=== PATIENT | female | born 1940 | race Caucasian/White ===

== ENCOUNTER 2022-07-31 10:09 | Outpatient (CLI) | payer MEDICARE, BC, SELFPAY | END 2022-07-31 10:10 | disposition home or self-care (01) | LOC: AMB 08-26 13:28 | PROVIDERS: PCP Internal Medicine; Visit Provider Family Medicine | DX: S09.93XA Unspecified injury of face, initial encounter (principal); S09.90XA Unspecified injury of head, initial encounter; W01.10XA Fall on same level from slipping, tripping and stumbling with subsequent striking against unspecified object, initial encounter; Y92.29 Other specified public building as the place of occurrence of the external cause | CPT/HCPCS: A0998 ==

== ENCOUNTER 2023-02-27 13:46 | Outpatient (CLI) | payer MEDICARE, BC, SELFPAY ==
[2023-02-27] MEDS: PERFLUTREN LIPID MICROSPHERES 2 ML VIAL IV (15:07)
== END 2023-02-27 13:47 | disposition home or self-care (01) ==
LOC: RAD 13:47
PROVIDERS: PCP Internal Medicine; Visit Provider Internal Medicine
DX: R01.1 Cardiac murmur, unspecified (principal)
CPT/HCPCS: 93306; Q9957

== ENCOUNTER 2023-03-27 12:08 | Emergency (ER) | payer MEDICARE, BC, SELFPAY ==
[2023-03-27] VITALS (10 sets, daily range): BP systolic 119–162; BP diastolic 81–97; PULSE 68–79; RESP 14–22; TEMP 36.7; O2SAT 93–96; BMI 32.3
--- NOTE | 2023-03-27 12:39 | ED_ITS ---
HPI - Abdominal Pain General Time Seen by Provider: 12:39 Date Seen: 03/27/23 Chief Complaint: Abdominal Pain Stated Complaint: chest pain Time Seen by Provider: 03/27/23 12:24 Source: patient and RN notes reviewed Mode of arrival: ambulatory Limitations: no limitations History of Present Illness HPI narrative: Krystal is a 2-year-old female coming about 3 -4 day history of left upper quadrant abdominal pain. She states she will get sharp intense pains, right now it is more at a dull ache. She has noted some change in urination sense of inability to go despite urgency at times. Other times she will have urgency and have excess urination. No hematuria or dysuria. No fevers or chills. No nausea or vomiting, no diarrhea. She had a kidney stone on the right side prior but remembers vomiting with that 1. 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 She has had a hysterectomy, cholecystectomy, appendectomy. She wonders if this could be a kidney stone. She notes no chest pain but does feel short of breath with this. She thinks it is the pain. It is not pleuritic on questioning. MD elicited complaint: abdominal pain Pertinent past history: kidney stones Related Data Patient : No Home Medications Medication Instructions Recorded Confirmed albuterol sulfate 90 mcg/actuation 2 inh inhalation Q4H PRN 01/17/23 01/17/23 aerosol inhaler cholecalciferol (vitamin D3) 50 2,000 unit PO DAILY 01/17/23 01/17/23 mcg (2,000 unit) capsule fluticasone 100 mcg-salmeterol 50 1 inh inhalation BID 01/17/23 01/17/23 mcg/dose blistr powdr for inhalation sennosides 8.6 mg tablet 1 mg PO DAILY 01/17/23 01/17/23 Previous Rx's Medication Instructions Recorded allopurinol 100 mg tablet 100 mg PO DAILY #90 tabs 01/17/23 atenolol 50 mg tablet 50 mg PO QDAY #90 tabs 01/17/23 colchicine 0.6 mg tablet 0.6 mg PO QDAY #90 tabs 01/17/23 triamterene 37.5 1 tab PO DAILY #90 tabs 01/17/23 mg-hydrochlorothiazide 25 mg tablet doxycycline monohydrate 100 mg 100 mg PO BID #19 tabs 03/27/23 tablet Allergies Allergy/AdvReac Type Severity Reaction Status Date / Time latex Allergy Intermediate Rash Verified 01/17/23 09:51 atorvastatin Allergy Mild hives, Verified 01/17/23 09:51 toes numb potassium Allergy Mild Rash Verified 01/17/23 09:51 bacitracin AdvReac Severe Verified 01/17/23 09:51 neomycin AdvReac Severe Verified 01/17/23 09:51 polymyxin B AdvReac Severe Verified 01/17/23 09:51 Review of Systems Status of ROS Reports: 6 or more systems reviewed and unremarkable except as noted in History and below [facility] Medical History History of nephrolithiasis ?Z87.442 - Personal history of urinary calculi (ICD-10) History of osteomyelitis (2016) ?Z87.39 - Personal history of other diseases of the musculoskeletal system and connective tissue (ICD-10) Surgical History Status post cataract extraction (2014) ?Z98.49 - Cataract extraction status, unspecified eye (ICD-10) History of tonsillectomy ?Z90.89 - Acquired absence of other organs (ICD-10) History of right hemicolectomy (2013) ?Z90.49 - Acquired absence of other specified parts of digestive tract (ICD- 10) History of hysterectomy (1972) ?Z90.710 - Acquired absence of both cervix and uterus (ICD-10) History of cholecystectomy (1988) ?Z90.49 - Acquired absence of other specified parts of digestive tract (ICD- 10) History of appendectomy (1972) ?Z90.49 - Acquired absence of other specified parts of digestive tract (ICD- 10) Social History Smoking Status: Never smoker Do you use any of these nicotine containing products: None Second hand tobacco smoke exposure: No How often do you have a drink containing alcohol: never AUDIT-C Alcohol total score: 0 Non-prescribed substance use: denies use Little interest or pleasure in doing things: not at all Feeling down, depressed, or hopeless: not at all service: No Exam Const: Vital Signs, click to edit/add: Vital Signs - 24 hr 03/27/23 12:29 03/27/23 13:04 03/27/23 14:39 Temperature 98.0 F 98.0 F Pulse Rate [Pulse Oximeter] 69 71 Respiratory Rate 18 18 Blood Pressure [Ri ght Upper Arm] 158/83 H 153/91 H Pulse Oximetry 95 95 93 Oxygen Delivery Me thod Room Air Room Air Documenting provider has reviewed patient's vital signs: yes Common normals: no apparent distress, oriented x3, no limitations, healthy appearing, alert and well nourished General appearance: cooperative, comfortable, well kempt and well developed Nutritional appearance: obese HENMT: Common normals: normocephalic, head/scalp atraumatic, hearing grossly normal bilaterally and external nose normal Head and scalp: normocephalic and atraumatic Face and sinus: normal facial exam Nose: external nose normal Eye: Common normals: PERRL, EOMs intact bilaterally, conjunctivae normal and no scleral icterus Conjunctiva: conjunctiva(e) normal Pupil: PERRL Neck & C-Spine: Common normals: full ROM, no lymphadenopathy and supple Resp: Common normals: normal respiratory effort, no retractions, no use of accessory muscles and clear to auscultation bilaterally Effort & inspection: able to speak in complete sentences Auscultation: clear to auscultation bilaterally Cardio: Common normals: regular rate, regular rhythm, S1 normal heart sound, S2 normal heart sound, no gallops and no clicks Rate: regular rate Rhythm: regular rhythm Heart sounds: S1 normal and S2 normal GI: Common normals: Normal to inspection, nondistended, normoactive bowel sounds present, soft to palpation, non-tender, no hepatosplenomegaly and no masses Palpation: soft and no hepatosplenomegaly Neuro: Common normals: oriented x3 Sensorium/orientation: alert Psych: Appearance: well kempt Course Course Hospital Course: Patient is having some underlying abdominal pain that has a component of worsening with sharp stabbing at times. Certainly nephrolithiasis with renal colic is in the differential. This could be a atypical presentation of of partial bowel obstruction although I do not consider this to be high on the diagnostic list. We may need to entertain CT imaging for further delineation of her pain. We will obtain urinalysis and full complement of labs. She is currently hemodynamically stable. Will follow and treat pain if she desires or clinically worsens. Reevaluation(s) Time of Reevaluation #1: 14:17 Reevaluation #1: Reviewed with Krystal her chest x-ray findings, elevated D-dimer. She will be getting chest CT PE protocol and then we will take this into the abdomen pelvis just to ensure no intra-abdominal pathology. She understands that there could be pneumonia, pleural effusion, possibly even underlying pulmonary embolus. There does exist the etiology of something underlying in the abdomen which could be giving a pleural effusion that is reactive. Time of Reevaluation #2: 16:46 Reevaluation #2: Have reviewed CT findings, she does have left-sided pneumonia and small left pleural effusion which is likely causative etiology of her symptoms. 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 There is also possible thyroid nodule. The kidney stones and the thyroid nodule will need further outpatient workup. We are going to start her on doxycycline, will give her her 1st oral dose here. Patient's potassium is mildly low but she is reported to be allergic to potassium. Will give her handout on potassium content of foods. Vital Signs Vital signs: Initial Vital Signs Temperature 98.0 F 03/27/23 12:29 Temperature Source Temporal Artery Scan 03/27/23 12:29 Pulse Rate 69 03/27/23 12:29 Pulse Rhythm Regular 03/27/23 12:29 Respiratory Rate 18 03/27/23 12:29 Blood Pressure 158/83 H 03/27/23 12:29 Blood Pressure Mean 108 H 03/27/23 12:29 Pulse Oximetry 95 03/27/23 12:29 Oxygen Delivery Method Room Air 03/27/23 12:29 Vital Signs Temperature 98.0 F 03/27/23 12:29 Pulse Rate 69 03/27/23 12:29 Respiratory Rate 18 03/27/23 12:29 Blood Pressure 158/83 H 03/27/23 12:29 Pulse Oximetry 95 03/27/23 12:29 Oxygen Delivery Method Room Air 03/27/23 12:29 Temperature 98.0 F 03/27/23 14:39 Pulse Rate 71 03/27/23 14:39 Respiratory Rate 18 03/27/23 14:39 Blood Pressure 153/91 H 03/27/23 14:39 Pulse Oximetry 93 03/27/23 14:39 Oxygen Delivery Method Room Air 03/27/23 14:39 MDM - Abdominal Pain Lab Data Attestation: I reviewed the patient's lab results. Labs: Lab Results 03/27/23 03/27/23 Range/Units 12:35 13:23 WBC 8.78 (4.50-11.00) K/uL RBC 4.62 (4.00-5.20) m/uL Hgb 14.8 (12.0-16.0) gm/dL Hct 44.2 (33.0-51.0) % MCV 96 (80-100) fL MCH 32 (26-34) pg MCHC 34 (32-36) gm/dL RDW Coeff of Elena 12.5 (11.5-15.5) % Plt Count 188 (140-440) K/uL Neut % (Auto) 55.0 (42.0-72.0) % Lymph % (Auto) 29.2 (20-44) % Park % (Auto) 11.6 H (0.0-11.0) % Eos % (Auto) 3.5 (0.0-7.0) % Baso % (Auto) 0.5 (0.0-3.0) % Neut # (Auto) 4.83 (1.7-7.0) K/uL Lymph # (Auto) 2.56 (0.90-2.90) K/uL Park # (Auto) 1.00 H (0.00-0.90) K/UL Eos # (Auto) 0.31 (0.00-0.50) K/uL Baso # (Auto) 0.04 (0.00-0.30) K/uL Abs Immat Gran (auto) 0.02 (0.00-0.30) K/uL Imm/Tot Granulo (auto) 0.2 % D-Dimer Quant (PE/DVT) 1.88 H (0.00-0.50) ug/ml Sodium 136 (135-149) mmol/L Potassium 3.0 L (3.6-5.1) mmol/L Chloride 98 (96-114) mmol/L Carbon Dioxide 27 (20-32) mmol/L BUN 32 H (7-30) mg/dL Creatinine 1.0 (0.5-1.5) mg/dL Estimated Creat Clear 39.90 Estimated GFR 56 ml/min Glucose 97 (60-115) mg/dL Lactate 1.9 (0.5-1.9) mmol/L Calcium 10.1 (8.4-10.6) mg/dL Total Bilirubin 0.6 (0.1-1.5) mg/dL AST 29 (12-35) U/L ALT 26 (4-35) U/L Alkaline Phosphatase 61 (40-150) U/L Troponin I < 0.01 L (0.01-0.04) ng/mL C-Reactive Protein 5.3 H (0.5-1.0) mg/dL Total Protein 8.1 (6.0-8.3) g/dL Albumin 4.1 (3.3-5.0) g/dL Urine Color Yellow (Yellow) Urine Appearance Clear (Clear) Urine pH 6.0 (5.0-8.5) Ur Specific [place] 1.015 (1.000-1.030) Urine Protein Negative (Negative) Urine Glucose (UA) Negative (Negative) Urine Ketones Negative (Negative) Urine Blood Trace-intact A (Negative) Urine Nitrite Negative (Negative) Urine Bilirubin Negative (Negative) Urine Urobilinogen 0.2 (0.2-1.0) Ur Leukocyte Esterase Trace A (Negative) Urine RBC 2-5 A (0-2) Urine WBC 0-2 (0-5) Ur Squamous Epith Cells Few (None-Few) Urine Bacteria Few A (None) Imaging Data Chest x-ray: Attestation: I have reviewed the pertinent imaging results. My impression: See blurring of the left heart border and costophrenic angle, probable effusion. Await Radiology over-read. Radiologist's impression: Patient: KRYSTAL MARSHALL Facility:?[facility] Patient ID:?[id number] Site Patient ID:?[id number]. Site :?[id number] Study:?XRay Chest 1 VIEW PORTABLE-03/27/2023 1:11:18 PM Ordering Physician:Vale Resendiz Final Report: INDICATION: Shortness of breath. TECHNIQUE: AP portable chest x-ray. FINDINGS: Shallow inspiratory effort. Infiltrate or atelectasis left lung base. Blunting of left costophrenic angle likely by trace amount of pleural fluid or pleural thickening. Clear right lung. Overall heart size is normal accounting for technique. Degenerative narrowing of the glenohumeral joints. IMPRESSION: Infiltrate or atelectasis left lung base. There is likely a small left-sided pleural effusion is well. Radiographic followup recommended after appropriate treatment. Dictated by Chandan Jamil MD @ 03/27/2023 1:50:16 PM (Electronic Signature) CT Chest/Ab/Pelvis: Attestation: I have reviewed the pertinent imaging results. Radiologist's impression: Patient: KRYSTAL MARSHALL Facility:?[facility] Patient ID:?[id number] Site Patient ID:?[id number]. Site :?[id number] Study:?CT Chest/Abd/Pelvis PE W/ ISOVUE 370 95CC-03/27/2023 2:45:08 PM Ordering Physician:Vale Resendiz Final Report: INDICATION: Shortness of breath. Left upper quadrant abdominal pain. TECHNIQUE: CT chest PE, abdomen and pelvis acquired with 95 cc Isovue 370 IV contrast. COMPARISON: Chest radiograph 03/27/2023. CT abdomen and pelvis 03/06/2017. FINDINGS: CHEST: Cardiovascular structures: Heart size is normal. Thoracic aorta and main pulmonary artery are normal in caliber. No sign of pulmonary embolism. Mediastinum and alfreda: No adenopathy. Questionable 1.5 cm nodule in the inferior left thyroid lobe, with evaluation limited by beam hardening artifact from contrast bolus, consider further evaluation with nonemergent dedicated thyroid ultrasound. Lungs and pleura: Trace left pleural effusion. Inferior lingula and bibasilar atelectasis. Left lower lobe patchy consolidative and ground-glass opacities. No pneumothorax. Chest wall and axilla: No mass or adenopathy. Bones: Chronic appearing compression deformity of T10, with fusion of the T10 and T11 vertebral bodies resulting in focal kyphosis. ABDOMEN AND PELVIS: Liver: Stable hypodense lesion in hepatic segment 4A, likely benign. Gallbladder and bile ducts: Status post cholecystectomy. Pancreas: Few parenchymal calcifications, nonspecific but may be seen as sequela of chronic pancreatitis. Spleen: Subcentimeter hypodense foci are too small to accurately characterize but unchanged and likely benign. Adrenal glands: Unremarkable. Kidneys: Left renal cortical thinning. Subcentimeter hypodense foci are too small to accurately characterize. Multiple left renal calculi, including with staghorn configuration in the superior pole. Punctate nonobstructive calculus in right inferior pole. No hydrocephalus. GI tract: Tiny are hernia. Normal in caliber. No evidence of obstruction. Vascular structures: Scattered atherosclerotic calcifications. Abdominal aorta is normal in caliber. Lymph nodes: Unremarkable. Miscellaneous: Unremarkable. No free air or significant free fluid. Pelvic Organs: Status post hysterectomy. Bones: Degenerative changes of the spine. IMPRESSION: 1. No evidence of pulmonary embolism. 2. Left lower lobe patchy consolidative and ground-glass opacities, likely reflecting pneumonia. 3. Trace left pleural effusion. 4. No acute abnormality of the abdomen or pelvis. 5. Bilateral nephrolithiasis as detailed above, including staghorn configuration in the left kidney. Please note that all CT scans at this facility use dose modulation, iterative reconstruction, and/or weight-based dosing when appropriate to reduce radiation dose to as low as reasonably achievable. Dictated by Felix Dominguez MD @ 03/27/2023 4:18:23 PM (Electronic Signature) ECG Data Attestation: I personally reviewed and interpreted this ECG as follows: (Sinus rhythm, 68 beats per minute. Looks to be developing a nonspecific intra conduction delay, QRS 114 milliseconds. Voltage criteria for LVH possible via aVL. QT corrected 412 milliseconds. No definitive ischemia.) ECG interpretation date: 03/27/23 ECG interpretation time: 13:24 Prior ECG tracings: available for review (2016 EKG) Critical Care Time Critical Care Time Critical Care Time: No Discharge Plan Discharge Clinical Impression: Community acquired pneumonia of left lung, Hypokalemia Patient Disposition: Home, Self-Care Condition: Stable Instructions: Potassium Content of Foods List (ED), Community Acquired Pneumonia (ED) Additional Instructions: Need to take doxycycline as prescribed, next dose due to start tomorrow morning. Potassium was mildly low here, recommend trying to eat foods that are higher in potassium content to correct this. Need to schedule clinic followup within the next 1-2 weeks for recheck, do recommend having your potassium rechecked as well. You need to bring the CT report to the follow-up visit to review the incidental findings. Urology should be consulted for the staghorn calculus in the left kidney. A dedicated thyroid ultrasound should be considered to ensure that there is no thyroid abnormality or further characterize any thyroid nodule if there is 1 there. As far as the pneumonia, if you are worsening at any point with feeling increasingly ill, uncontrolled pain, develops fever, cough or significant shortness of breath/difficulty breathing. The left sided pain is l ikely pleuritic pain from the pneumonia bothering the lining of the lung. Recommend Tylenol 1000 mg 3 times a day. May use an occasional dose of ibuprofen but do not recommend this be used chronically or consistently. Activity Level: Activity as Tolerated Prescriptions: New doxycycline monohydrate 100 mg tablet 100 mg PO BID Qty: 19 0RF No Action albuterol sulfate 90 mcg/actuation HFA aerosol inhaler 2 inh inhalation Q4H PRN sennosides 8.6 mg tablet 1 mg PO DAILY cholecalciferol (vitamin D3) 50 mcg (2,000 unit) capsule 2,000 unit PO DAILY fluticasone propion-salmeterol 100-50 mcg/dose blister with device 1 inh inhalation BID allopurinol 100 mg tablet 100 mg PO DAILY Qty: 90 3RF atenolol 50 mg tablet 50 mg PO QDAY Qty: 90 3RF colchicine 0.6 mg tablet 0.6 mg PO QDAY Qty: 90 3RF triamterene-hydrochlorothiazid 37.5-25 mg tablet 1 tab PO DAILY Qty: 90 3RF Follow Up/Referrals: Katia Pelaez MD [Primary Care Provider] - Stand Alone Forms: [employer] Info Instructions
--- NOTE | 2023-03-27 12:52 | CRLHL7_ITS ---
For Patients: As a result of the Century Cures Act, medical imaging exams and procedure reports are released immediately into your electronic medical record. You may view this report before your referring provider. If you have questions, please contact your health care provider. INDICATION: Shortness of breath. TECHNIQUE: AP portable chest x-ray. FINDINGS: Shallow inspiratory effort. Infiltrate or atelectasis left lung base. Blunting of left costophrenic angle likely by trace amount of pleural fluid or pleural thickening. Clear right lung. Overall heart size is normal accounting for technique. Degenerative narrowing of the glenohumeral joints. IMPRESSION: Infiltrate or atelectasis left lung base. There is likely a small left-sided pleural effusion is well. Radiographic followup recommended after appropriate treatment. Dictated by Chandan Jamil MD @ 03/27/2023 1:50:16 PM (Electronically Signed)
[2023-03-27 12:59] LABS: Lactate* 1.9 mmol/L (0.5-1.9)
[2023-03-27 13:03] LABS: Basophils Absolute Auto 0.04 K/uL (0.00-0.30); Basophils Percent Auto 0.5 % (0.0-3.0); Eosinophils Absolute Auto 0.31 K/uL (0.00-0.50); Eosinophils Percent Auto 3.5 % (0.0-7.0); Hematocrit 44.2 % (33.0-51.0); Hemoglobin* 14.8 gm/dL (12.0-16.0); Immature Granulocytes Abs Auto 0.02 K/uL (0.00-0.30); Immature Granulocytes Pct Auto 0.2 %; Lymphocytes Absolute Auto 2.56 K/uL (0.90-2.90); Lymphocytes Percent Auto 29.2 % (20-44); Mean Corpuscular HGB Conc 34 gm/dL (32-36); Mean Corpuscular Hemoglobin 32 pg (26-34); Mean Corpuscular Volume 96 fL (80-100); Monocytes Percent Auto 11.6 % (0.0-11.0); Neutrophils Absolute Auto 4.83 K/uL (1.7-7.0); Platelet Count* 188 K/uL (140-440); RDW Coefficient of Variation % 12.5 % (11.5-15.5); Red Blood Count 4.62 m/uL (4.00-5.20); White Blood Count* 8.78 K/uL (4.50-11.00)
[2023-03-27 13:15] LABS: Slide Review Reflex No
[2023-03-27 13:16] LABS: D Dimer Quantitative* 1.88 ug/ml (0.00-0.50)
[2023-03-27 13:25] LABS: Albumin* 4.1 g/dL (3.3-5.0); Chloride* 98 mmol/L (96-114)
[2023-03-27 13:26] LABS: Sodium* 136 mmol/L (135-149)
[2023-03-27 13:28] LABS: Estimated Glomerular Filt Rate 56 ml/min
[2023-03-27 13:29] LABS: Alanine Aminotransferase* 26 U/L (4-35); Alkaline Phosphatase* 61 U/L (40-150); Aspartate Amino Transferase* 29 U/L (12-35); Bilirubin Total* 0.6 mg/dL (0.1-1.5); Blood Urea Nitrogen* 32 mg/dL (7-30); Calcium* 10.1 mg/dL (8.4-10.6); Carbon Dioxide* 27 mmol/L (20-32); Glucose* 97 mg/dL (60-115); Total Protein* 8.1 g/dL (6.0-8.3)
--- NOTE | 2023-03-27 13:30 | CRLHL7_ITS ---
For Patients: As a result of the 21st Century Cures Act, medical imaging exams and procedure reports are released immediately into your electronic medical record. You may view this report before your referring provider. If you have questions, please contact your health care provider. INDICATION: Shortness of breath. Left upper quadrant abdominal pain. TECHNIQUE: CT chest PE, abdomen and pelvis acquired with 95 cc Isovue 370 IV contrast. COMPARISON: Chest radiograph 03/27/2023. CT abdomen and pelvis 03/06/2017. FINDINGS: CHEST: Cardiovascular structures: Heart size is normal. Thoracic aorta and main pulmonary artery are normal in caliber. No sign of pulmonary embolism. Mediastinum and alfreda: No adenopathy. Questionable 1.5 cm nodule in the inferior left thyroid lobe, with evaluation limited by beam hardening artifact from contrast bolus, consider further evaluation with nonemergent dedicated thyroid ultrasound. Lungs and pleura: Trace left pleural effusion. Inferior lingula and bibasilar atelectasis. Left lower lobe patchy consolidative and ground-glass opacities. No pneumothorax. Chest wall and axilla: No mass or adenopathy. Bones: Chronic appearing compression deformity of T10, with fusion of the T10 and T11 vertebral bodies resulting in focal kyphosis. ABDOMEN AND PELVIS: Liver: Stable hypodense lesion in hepatic segment 4A, likely benign. Gallbladder and bile ducts: Status post cholecystectomy. Pancreas: Few parenchymal calcifications, nonspecific but may be seen as sequela of chronic pancreatitis. Spleen: Subcentimeter hypodense foci are too small to accurately characterize but unchanged and likely benign. Adrenal glands: Unremarkable. Kidneys: Left renal cortical thinning. Subcentimeter hypodense foci are too small to accurately characterize. Multiple left renal calculi, including with staghorn configuration in the superior pole. Punctate nonobstructive calculus in right inferior pole. No hydrocephalus. GI tract: Tiny are hernia. Normal in caliber. No evidence of obstruction. Vascular structures: Scattered atherosclerotic calcifications. Abdominal aorta is normal in caliber. Lymph nodes: Unremarkable. Miscellaneous: Unremarkable. No free air or significant free fluid. Pelvic Organs: Status post hysterectomy. Bones: Degenerative changes of the spine. IMPRESSION: 1. No evidence of pulmonary embolism. 2. Left lower lobe patchy consolidative and ground-glass opacities, likely reflecting pneumonia. 3. Trace left pleural effusion. 4. No acute abnormality of the abdomen or pelvis. 5. Bilateral nephrolithiasis as detailed above, including staghorn configuration in the left kidney. Please note that all CT scans at this facility use dose modulation, iterative reconstruction, and/or weight-based dosing when appropriate to reduce radiation dose to as low as reasonably achievable. Dictated by Felix Dominguez MD @ 03/27/2023 4:18:23 PM (Electronically Signed)
[2023-03-27 13:32] LABS: C Reactive Protein* 5.3 mg/dL (0.5-1.0)
[2023-03-27 13:50] LABS: Appearance Urine Clear (Clear); Bilirubin Urine Negative (Negative); Blood Urine Trace-intact (Negative); Color Urine Yellow (Yellow); Glucose Urine Negative (Negative); Ketones Urine Negative (Negative); Leukocyte Esterase Urine Trace (Negative); Nitrite Urine Negative (Negative); Protein Urine Negative (Negative); Specific Gravity Urine 1.015 (1.000-1.030); Urobilinogen Urine 0.2 (0.2-1.0)
[2023-03-27 14:10] LABS: Bacteria Urine Few; Squamous Epithelial Cell Urine Few (None-Few); WBC Urine 0-2 (0-5)
[2023-03-27 14:20] LABS: Troponin I* < 0.01 ng/mL (0.01-0.04)
--- NOTE | 2023-03-27 14:41 | PC.NURSE ---
pt came back from CT and used restroom, came back to room short of breath and increased left lower chest pain.
[2023-03-27] MEDS: ACETAMINOPHEN 500 MG TABLET 1000 MG PO (14:54)
--- NOTE | 2023-03-27 16:52 | ED.NURSE ---
Dr. Rloon is in the room talking with patient
[2023-03-27] MEDS: DOXYCYCLINE HYCLATE 100 MG CAPSULE PO (17:06)
== END 2023-03-27 17:36 | disposition home or self-care (01) ==
PROVIDERS: Emergency Provider Family Medicine; PCP Internal Medicine
DX: J18.9 Pneumonia, unspecified organism (principal); E87.6 Hypokalemia
CPT/HCPCS: 36415; 71045; 71260; 74177; 80053; 81001; 83605; 84484; 85025; 85379; 86140; 87086; 93005; 94761; 99284; 99285; A9270; Q9967

== ENCOUNTER 2023-04-20 13:22 | Outpatient (CLI) | payer MEDICARE, BC, SELFPAY ==
--- NOTE | 2023-04-20 13:40 | CRLHL7_ITS ---
For Patients: As a result of the Century Cures Act, medical imaging exams and procedure reports are released immediately into your electronic medical record. You may view this report before your referring provider. If you have questions, please contact your health care provider. BILATERAL SCREENING MAMMOGRAM WITH COMPUTER-AIDED DETECTION TECHNIQUE: CC and MLO views were obtained. These mammographic images have been obtained using full-field digital technique. These mammographic images were interpreted with the benefit of computer-aided detection. COMPARISON FILM: 08/06/21, 06/18/20, 06/17/19. FINDINGS: There are scattered areas of fibroglandular density IMPRESSION: There is no radiographic evidence for malignancy. ASSESSMENT: BI-RADS Category 1: Negative RECOMMENDATION: Routine screening mammogram in 1 year. A lay language report of this examination will be provided to the patient. Gaudencio Cramer M.D. Diagnostic Radiologist [email or web address] JANNETH/Dictated by: Gaudencio Cramer MD @ 04/21/2023 2:32:00 PM (Electronically Signed)
--- NOTE | 2023-04-20 14:00 | CRLHL7_ITS ---
For Patients: As a result of the Cures Act, medical imaging exams and procedure reports are released immediately into your electronic medical record. You may view this report before your referring provider. If you have questions, please contact your health care provider. INDICATION: Nodule on recent CT COMPARISON: CTs 03/27/2023 TECHNIQUE: Goetz scale and color Doppler images were acquired of the thyroid gland. FINDINGS: Sponge like nodule within the upper pole of the right thyroid lobe measuring 10 x 7 x 9 millimeters. Isoechoic solid nodule inferior pole right thyroid lobe measuring 17 x 11 x 18 millimeters. Solid and cystic nodule upper pole left thyroid lobe measuring 11 x 10 x 12 millimeters. Sponge like nodule midportion left thyroid lobe measuring 9 x 14 x 11 millimeters. Solid and cystic nodule lower pole left thyroid lobe measuring 20 x 17 x 17 millimeters. The right lobe measures 5.5 x 1.7 x 1.9 cm and the left lobe measures 3.8 x 1.8 x 2.1 cm in size. The color Doppler images demonstrate normal vascularity. There is no evidence of cervical lymphadenopathy or parathyroid mass. IMPRESSION: Multinodular goiter. Yearly follow-up could be considered. FNA not indicated at this time. Dictated by Gaudencio Cramer MD @ 04/21/2023 10:50:08 AM (Electronically Signed)
== END 2023-04-20 13:23 | disposition home or self-care (01) ==
LOC: MAMMO 13:23
PROVIDERS: PCP Internal Medicine; Visit Provider Internal Medicine
DX: Z12.31 Encounter for screening mammogram for malignant neoplasm of breast (principal); E04.1 Nontoxic single thyroid nodule
CPT/HCPCS: 76536; 77063; 77067

== ENCOUNTER 2024-02-26 08:55 | Outpatient (CLI) | payer MEDICARE, BC, SELFPAY ==
--- OUTSIDE RECORDS SUMMARY | 2024-03-01 15:45 | XMS_ITS | Clinical Summary ---
Author Organization [facility] Address [address] [place] [address] Care Team Providers Care Clinical Medical Transcriptionist Name Role Phone Elsewhere, Pcp Primary Care Provider Unavailabl e Source Comments Patient records contain information from all sites at [facility]. For routine questions regarding patient records, call [phone] during business hours, M-F 8:00 AM - 5:00 PM Central Time. Record requests for emergency care only can be directed to [phone] at any time.[facility] Allergies Active Allergy Reactions Criticality Noted Date Comments Latex Other (see comments),Rash High 04/21/2016 PN: Skin peeling at site where latex bandage was placed on finger Mineral Oil-Hydrophil Petrolat Rash 04/13/2023 Neomycin Rash High 03/30/2017 Polymyxin B Rash 04/13/2023 neosporin Potassium GI intolerance,Nause a And Vomiting,Rash Low 03/30/2017 Medications Medication Sig Dispensed Refills Start Date End Date Status atenoloL (TENORMIN) 50 mg tablet Take 50 mg by mouth daily. Active colchicine (COLCRYS) 0.6 mg tablet Take 0.6 mg by mouth daily. 01/27/2023 Active albuterol 90 mcg/actuation inhaler Inhale 2 puffs 2 (two) times a day. Active fluticasone propion-salmeteroL 100-50 mcg/actuation diskus inhaler Inhale 1 puff as needed (shortness of breath). 03/21/2017 Active albuterol 1.25 mg/3 mL nebulizer solution Inhale 1.25 mg every 4 (four) hours as needed for shortness of breath. 05/31/2022 Active triamterene-hydroCHL OROthiazide (Dyazide) 37.5-25 mg per capsule Take 1 capsule by mouth daily. Active acetaminophen (TYLENOL) 500 mg tablet Take 1,000 mg by mouth daily after breakfast. Active allopurinoL 200 mg tablet Take 200 mg by mouth daily. 90 tablet 3 10/10/2023 Active sodium bicarbonate 650 mg tabletIndications:Ne phrolithiasis Take 1 tablet (650 mg total) by mouth 2 (two) times a day. 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 No 10/06/2023 Exercise Vital Sign Answer Date Recorde d On average, how many days pe r week do you engage in moderate to strenuous exercise (like a brisk walk)? 2 days 10/06/2023 On average, how many minutes do you engage in exercise at this level? 20 min 10/06/2023 Hunger Vital Sign Answer Date Recorded Within the past 12 months, y ou worried that your food would run out before you got the money to buy more. Never true 10/06/19 24 Within the past 12 months, t he food you bought just didn't last and you didn't have money to get more. Never true 10/06/2023 PRAPARE - Transportation Answer Date Re corded In the past 12 months, has l ack of transportation kept you from medical appointments or from getting medications? No 09/12 In the past 12 months, has l ack of transportation kept you from meetings, work, or from getting things needed for daily living? No 10/06/2023 Nutrition Answer Date Recorded Nutrition: EVOO Fat Source Unknown 10/06 On average, how many serving s of fruits and vegetables do you eat per day (serving size is equal to 1 cup or approximately the size of a tennis ball)? 3-5 10/06/2023 Dental Answer Date Recorded Dental: Regular Dentist Yes 10/06/19 Employment Answer Date Recorded Employment status Retired 10/06/2023 Housing Stability Answer Date Recorded What is your living situation today? I have a [facility] place to live 10/06/2023 Sex and Gender Information Value Date Recorded Sex Assigned at Female 07/28/2023 2:08 PM PROGRAM SUPPORT ASSISTANT Gender Identity Female 07/28/2023 2:08 PM PROGRAM SUPPORT ASSISTANT Sexual Orientation Straight 07/28/2023 2: 08 PM PROGRAM SUPPORT ASSISTANT Last Filed Vital Signs Vital Sign Reading Time Taken Comments Blood Pressure 122/75 10/10/2023 1:28 PM PROGRAM SUPPORT ASSISTANT Pulse 73 10/10/2023 1:28 PM PROGRAM SUPPORT ASSISTANT Temperature 36.2 ??C (97.2 ??F) 08/04/2023 2:24 PM CS T Respiratory Rate 14 08/04/2023 2:24 PM PROGRAM SUPPORT ASSISTANT Oxygen Saturation 98% 08/04/2023 2:24 PM PROGRAM SUPPORT ASSISTANT Inhaled Oxygen Concentration - - Weight 92.4 kg (203 lb 13 oz) 10/10/2023 1:28 PM PROGRAM SUPPORT ASSISTANT Height 161.8 cm (5' 3.7) 10/10/2023 1:28 PM PROGRAM SUPPORT ASSISTANT Body Mass Index 35.31 10/10/2023 1:28 PM PROGRAM SUPPORT ASSISTANT Plan of Treatment Health Maintenance Due Date Last Done Comments DTaP,Tdap,and Td Vaccines (2 - Td or Tdap) 03/27/2023 03/27/2013, 01/01/1997 COVID-19 Vaccine (2022-2 4 season) 2023 01/19/2023, 07/18/2022, 12/23/2021, Additional history exists Depression Screening (Annual PHQ-2) 09/11/2023 Fall Risk Screen (Annual) 09/11/2023 Creatinine Level (Kidney Fun ction Test) 10/10/2024 10/10/2023, 06/16/2023, 06/14/2023, Additional history exists Office Visit for Blood Press ure Check / Re-check 10/10/2024 10/10/2023 Potassium Level 10/10/2024 10/10/2023, 02/2023, 06/14/2023, Additional history exists Sodium Level 10/10/2024 10/10/2023, 02/2023, 06/14/2023, Additional history exists Pneumococcal vaccine (65+ years) Completed 02/01/2016, 11/24/2014, 07/17/2003 Zoster Vaccines Completed 07/11/2019, 04/11, 06/25/2012 Influenza Vaccine Completed 05/22/2023, , 06/09/2021, Additional history exists Medical Devices Implanted Type Area Spool Hauler Device Identifier Shelf Expiration Date Model / Serial / Lot Ocular Lens Ocular Lens Eye Explanted Type Area Spool Hauler Device Identifier Shelf Expiration Date Model / Serial / Lot Stnt Uret Inl 6fx26 - [id number] Implanted:Qty : 1 on 06/15/2023 by Kvng Guy M.D., M.P.H. at [facility] Explanted:Qty : 1 Ureteral Stent C.R.Bard [id number] 01/03/2028 [id number] / / [id number] Stnt Uret Inl [id number] - [id number] Implanted:Qty : 1 on 08/04/2023 by Kvng Guy M.D., M.P.H. at [facility] Explanted:Qty : 1 on 09/07/2023 by Sandra Stern M.D., M.S. Ureteral Stent Left: Ureter C.R.Bard [id number] 01/03/2028 [id number] / / [id number] Procedures Procedure Name Priority Date/Time Associated Diagnosis Comments RENAL FUNCTION PANEL, S Routine 10/10/2023 10:52 AM PROGRAM SUPPORT ASSISTANT Nephrolithiasis from Last 3 Months or Most Recently Relevant to Health Maintenance Results * (ABNORMAL) Renal Function Panel (10/10/2023 10:52 AM PROGRAM SUPPORT ASSISTANT) Potassium, S 3.5(L) 3.6 - 5.2 mmol/L 10/10/2023 12:00 PM PROGRAM SUPPORT ASSISTANT DTL Sodium, S 140 135 - 145 mmol/L 10/10/2023 12:00 PM PROGRAM SUPPORT ASSISTANT DTL Chloride, S 102 98 - 107 mmol/L 10/10/2023 12:00 PM PROGRAM SUPPORT ASSISTANT DTL Bicarbonate, S 26 22 - 29 mmol/L 10/10/2023 12:00 PM PROGRAM SUPPORT ASSISTANT DTL Anion Gap 12 7 - 15 10/10/2023 12:00 PM PROGRAM SUPPORT ASSISTANT DTL BUN (Blood Urea Nitrogen), S 35(H) 6 - 21 mg/dL 10/10/2023 12:00 PM PROGRAM SUPPORT ASSISTANT DTL Creatinine 1.20(H) 0.59 - 1.04 mg/dL 10/10/2023 12:00 PM PROGRAM SUPPORT ASSISTANT DTL Estimated GFR (eGFR) 45(L) >=60 mL/min/BSA 10/10/2023 12:00 PM PROGRAM SUPPORT ASSISTANT DTL Comment: Estimated GFR calculated using the 2020 CKD_EPI creatinine equation. Calcium, Total, S 10.1 8.8 - 10.2 mg/dL 10/10/2023 12:00 PM PROGRAM SUPPORT ASSISTANT DTL Glucose, S 96 70 - 140 mg/dL 10/10/2023 12:00 PM PROGRAM SUPPORT ASSISTANT DTL Albumin, S 4.1 3.5 - 5.0 g/dL 10/10/2023 12:00 PM PROGRAM SUPPORT ASSISTANT DTL Phosphorus (Inorganic), S 3.0 2.5 - 4.5 mg/dL 10/10/2023 12:00 PM PROGRAM SUPPORT ASSISTANT DTL Blood (Blood, Venous) 10/10/2023 10:52 AM PROGRAM SUPPORT ASSISTANT 10/10/2023 11:31 AM PROGRAM SUPPORT ASSISTANT Sandra Stern M.D., M.S. LAB BLOO D ADD-ON [facility] [address] [place] [address], [facility] DTL [facility] [address] [place] [address] from Last 3 Months or Most Recently Relevant to Health Maintenance Care Teams Clinical Medical Transcriptionist Relationship Specialty Start Date End Date Elsewhere, Pcp PCP - General Internal Medicine 04/13/23
--- OUTSIDE RECORDS SUMMARY | 2024-03-01 15:45 | XMS_ITS | Continuity of Care Document ---
Author Organization [facility] Address [address] [place] [address] Phone Care Team Providers Care Insecticide Expert Name Role Phone Collins Griffiths MD Unavailable Unavailable Allergies, Adverse Reactions, Alerts Substance Reaction Status Criticality petrolatum,white rash Active No Informat ion polymyxin B rash Active No Information neomycin rash Active No Information bacitracin rash Active No Information atorvastatin intolerance Active No Information latex rash Active No Information potassium hives, nausea, vomiting Active No I nformation Medications Medication Instructions Dosage Effective Dates (start - stop) Status Comments ADVAIR DISKUS (unknown strength) Not Available - Active ADVIL (unknown strength) Not Available - Active ATENOLOL (unknown strength) Not Available - Active MAXZIDE-25 MG (unknown strength) Not Available - Active DULCOLAX (unknown strength) Not Available - Active MULTIVITAMINS (unknown strength) Not Available - Active OXYCODONE HCL (unknown strength) Not Available - Active SENNA (unknown strength) Not Available - Active PROVENTIL HFA (unknown strength) Not Available - Active SILVADENE (unknown strength) Not Available - Active VITAMIN D3 (unknown strength) Not Available - Active TYLENOL (unknown strength) Not Available - Active Procedures Procedure Date X Ray Exam Entire Spine 1 Office/Outpatient Visit,New, Low 2020 Office/Outpatient Visit,Est, Mod 2017 X Ray Exam Entire Spine 1 Office/Outpatient Visit,Est, Mod 2017 X Ray Exam Entire Spine 1 Office/Outpatient Visit,Est, Mod 2016 X Ray Exam Entire Spine 1 Office/Outpatient Visit,Est, Mod 2016 X Ray Exam Entire Spine 1 VW Office/Outpatient Visit,New, Mod 2016 X Ray Exam Entire Spine 2/3 VW 17 Followup Hospital Care, [facility] 2016 Advance Directives Directive Yes / No Effective Date File Name No Information Encounters Encounter Description Practice Location Reason(s) For Visit Diagnoses Date Provider Providers Copied on Encounter [facility], [address], [place], [place], [id number], [place] tel:[phone] [facility] No Information 2 Mehbod Amir. [facility] [place], [address], [place], [place], [address], [place]. tel:[phone] Office/Outpat ient Visit,New, Low [facility], [address], [place], [place], [address], [place] tel:[phone] [facility] Kyphosis 1 Mehbod Amir. [facility] [place], [address], [place], [place], [address], [place]. tel:[phone] Referring Provider: Collins Griffiths, [facility] [address], [place], [address] . tel:[phone] [facility], [address], [place], [place], [id number], [place] tel:[phone] [facility] Kyphosis 1 Mehbod Amir. [facility] [place], [address], [place], [place], [address], [place]. tel:[phone] Office/Outpat ient Visit,Est, Mod [facility], [address], [place], [place], [address], [place] tel:[phone] [facility] Osteomyelitis 8-201 8 Mehbcleo Amir. [facility] [place], [address], [place], [place], [address], [place]. tel:[phone] Referring Provider: Collins Griffiths, [facility] [address], [place], [address] . tel:[phone] Office/Outpat ient Visit,Est, Mod [facility], [address], [place], [place], [address], [place] tel:[phone] [facility] Osteomyelitis Sep-0 8-201 8 Mehbod Amir. [facility], [address], [place], [place], [address], [place]. tel:[phone] Referring Provider: Collins Griffiths, [facility] [address], [place], [address] . tel:[phone] Office/Outpat ient Visit,Est, Mod [facility], [address], [place], [place], [address], [place] tel:[phone] [facility] Osteomyelitis [phone] Mehbod Amir. [facility], [address], [place], [place], [address], [place]. tel:[phone] Referring Provider: Collins Griffiths, [facility] [address], [place], [address] . tel:[phone] Office/Outpat ient Visit,Est, Mod [facility], [address], [place], [address], [place] tel:[phone] [facility] Osteomyelitis 4-201 7 Mehbod Amir. [facility], [address], [place], [place], [address], [place]. tel:[phone] Referring Provider: Collins Griffiths, [facility] [place] [address] [place] [address] [address], [place], [address] . tel:[phone] Office/Outpat ient Visit,New, Mod [facility], [address], [place], [place], [address], [place] tel:[phone] [facility] kevincleo Guadalupe. [facility], [address], [place], [place], [address], [place]. tel:[phone] Referring Provider: Referring Self, [address] [facility] [address], [place], [address]. tel:[phone] Followup Hospital Care, Moderate [facility], [address], [place], [place], [address], [place] tel:[phone] [facility] No Information Arnoldo Otis. [facility] [place], [address] [address] [address], [place], [place], [address], [place]. tel:[phone] Referring Provider: Referring Self, [address] [facility] [address], [place], [address]. tel:[phone] Family History Family Member Type Diagnosis Age At Onset No Information Payers Payer name Insurance type Covered green [place] ID [id number] Medicare [facility] [id number] Social History Type Description Quantity Date Captured Comments Sex Female Smoking Status No Information Chief Complaint And Reason For Visit No Information Reason For Referral Reason For Referral No Information Plan Of Treatment Date Type Action Status Future Order: Radiology Order FS Lateral (FSLAT), Ordered on: Ordered Future Order: Radiology Order La teral Full Spine (LatFS), Ordered on: Ordered Future Order: Radiology Order La teral Full Spine (LatFS), Ordered on: Ordered Future Order: Radiology Order PA /Lateral Full Spine (PALatFS), Ordered on: Ordered History Of Present Illness Encounter Date Complaint History Of Prese nt Illness No Information Functional Status Date Functional Assessmen t No Information Instructions Date Instruction Additional Infor mation Weight management: I nstructed to return to General Practitioner timeframe: 1 Month. Related to Overweight Weight Management Education Rela jonathan to Overweight Weight management: I nstructed to return to General Practitioner timeframe: 1 Month. Related to Overweight Weight Management Education Rela jonathan to Overweight Weight management: I nstructed to return to General Practitioner timeframe: 1 Month. Related to Overweight Weight Management Education Rela jonathan to Overweight Weight management: I nstructed to return to General Practitioner timeframe: 1 Month. Related to Overweight Weight Management Education Rela jonathan to Overweight Assessments Type Assessment Date No Information Patient Care Teams Name Effective Dates (start - stop) Status Members No Information
--- OUTSIDE RECORDS SUMMARY | 2024-03-01 15:45 | XMS_ITS | Clinical Summary ---
Author Organization [facility] Address [address], [place] [address] Care Team Providers Care Petroleum Sampler Name Role Phone Clinician, Not Found MD Primary Care Provider Un available Source Comments You are receiving this document as you are listed as the primary care provider,follow-up provider, or the patient has been referred to you for consultation.This is in compliance with the Medicare andMedicaid EHR Incentive Program,which states Providers who transition their patient to another setting of careor provider of care or refers their patient to another provider of care shouldprovide summary care record for each transition of care or referral. [facility] Active Allergy Reactions Criticality Noted Date Comments Bacitracin Rash 03/30/2017 Latex Other, see comments 04/21/2016 PN: Skin peeling at site where latex bandage was placed on finger Neomycin Rash 03/30/2017 Other 04/09/2009 PN: LW Other1: -potassium-hives Petrolatum Rash 03/30/2017 Polymyxin B Rash 03/30/2017 Potassium Nausea And Vomiting 03/30/2017 Medications Medication Sig Dispensed Refills Start Date End Date Status ATENolol (AKA TENORMIN) 50 MG tablet Take 1 Tablet (50 mg) by mouth daily at bedtime. 30 tablet 11 03/09/2012 Active triamterene-hydrochl orothiazide (DYAZIDE) 37.5-25 MG capsule Take 1 Capsule by mouth daily. Active acetaminophen 500 MG tablet Take 1-2 Tablets (500-1,000 mg) by mouth every 6 hours as needed. Active allopurinol (ZYLOPRIM) 100 MG tablet Take 1 Tablet (100 mg) by mouth. 10/10/2023 Active bisacodyl (DULCOLAX) 5 MG enteric coated tablet Take 1 Tablet (5 mg) by mouth once as needed. Active cholecalciferol (VITAMIND3) 50 MCG (2000 UT) tablet Take 1 Tablet (2,000 Units) by mouth. Active colchicine (COLCRYS) 0.6 MG tablet Take 1 Tablet (0.6 mg) by mouth daily. 11/25/2023 Active LYCOPENE OR Take 1 Tablet by mouth daily. Active senna (SENOKOT) 8.6 MG tablet Take 1-4 Tablets (8.6-34.4 mg) by mouth. Active fluticasone-salmeter ol (ADVAIR HFA) 115-21 mcg/actuation inhaler Inhale 2 Puffs two times a day. Rinse mouth/gargle after use. 6 Each 1 12/05/2023 12/04/2024 Active ALBUterol 1.25 mg/3 mL (ACCUNEB) 1.25 MG/3ML nebulizer solution Inhale 3 mL (1.25 mg) every 4 hours as needed for Wheezing. 180 mL 2 12/05/2023 Active ALBUterol sulfate HFA 108 (90 Base) MCG/ACT inhaler Inhale 2 Puffs every 4 hours as needed for Wheezing. 8.5 g 6 12/05/2023 Active predniSONE (DELTASONE) 20 MG tablet Take 1 Tablet (20 mg) by mouth two times a day. 1 pill 2x per day for 5-7 days 14 Tablet 12/05/2023 Active Active Problems Problem Noted Date Diagnosed Date Allergic rhinitis 02/15/2003 Overview: Rhinitis Allergic NOS Asthma 02/15/2003 Overview: Asthma NOS Encounters Date Type Department Care Team Description 12/05/2023 11:00 AM CDT Office Visit [facility] [address] [place] [address] Mya Hurtado MD Encounter for pulmonary function testing (Primary Dx); Moderate asthma, unspecified whether complicated, unspecified whether persistent (HRC); Allergic rhinitis, unspecified seasonality, unspecified trigger 12/05/2023 Orders Only [facility] DEPARTMENT Provider, MD Tai from Last 3 Months Immunizations Name Administration Dates Next Due Moderna Monovalent 12+ 11/27/2020,10/30/2020 Social History Tobacco Use Types Packs/Day Years Used Date Smoking Tobacco: Never Smokeless Tobacco: Never Sex and Gender Information Value Date Recorded Sex Assigned at Not on file Gender Identity Not on file Sexual Orientation Not on file Last Filed Vital Signs Vital Sign Reading Time Taken Comments Blood Pressure 147/92 12/05/2023 10:59 AM CDT Pulse 71 12/05/2023 10:59 AM CDT Temperature - - Respiratory Rate - - Oxygen Saturation 96% 12/05/2023 10: 59 AM CDT Inhaled Oxygen Concentration - - Weight 94.2 kg (207 lb 11.2 oz) 024 10:59 AM CDT Height 162.6 cm (5' 4) 12/05/2023 10:5 9 AM CDT Body Mass Index 35.65 12/05/2023 10:59 AM CDT Plan of Treatment Health Maintenance Due Date Last Done Comments Medicare Annual Wellness Visit 1940 Dexa 12/01/2004 DTaP/Tdap/Td (2 - Tdap) 03/27/2023 03/27/2013, 01/01 COVID-19 Vaccine ( season) 2023 01/19/2023, 07/18/2022, 12/23/2021, Additional history exists Pneumococcal 65+ Yrs Completed 02/01/2016, 11/24/2014, 07/17/2003 Zoster/Shingles Completed 07/11/2019, 04/11, 06/25/2012 Influenza Completed 05/22/2023, 06/11, 06/09/2021, Additional history exists HepA Aged Out No longer eligi ble based on patient's age to complete this topic HepB Aged Out No longer eligi ble based on patient's age to complete this topic Hib Aged Out No longer eligi ble based on patient's age to complete this topic IPV (Polio) Aged Out No longer eligi ble based on patient's age to complete this topic MCV4 Aged Out No longer eligi ble based on patient's age to complete this topic Procedures Procedure Name Priority Date/Time Associated Diagnosis Comments SPIROMETRY ALLERGY Routine 12/05/2023 10 :42 AM CDT Encounter for pulmonary function testing PULMONARY TEST SC 12/05/2023 from Last 3 Months Results * SPIROMETRY ALLERGY (12/05/2023 10:42 AM CDT) FVC-PRED 2.34 PN BREEZE FVC 1.86 PN BREEZE FVC-%PRED 79 PN BREEZE FEV1-PRED 1.73 PN BREEZE FEV1 1.42 PN BREEZE FEV1-%Pred 81 PN BREEZE [id number] 73 PN BREEZE [id number] Pre 76 PN BREEZE [id number]-[id number] RE 104 PN BREEZE FEFMAX-PRED 4.28 PN BREEZE FEFMAX-PRE 5.96 PN BREEZE FEFMAX-%PRED-MI E 139 PN BREEZE [id number] 1.16 PN BREEZE [id number] 1.08 PN BREEZE [id number]-%PRED-P RE 93 PN BREEZE 12/05/2023 10:4 2 AM CDT Mya Hurtado MD PN PFT ORDERABLES PN BREEZE * PULMONARY TEST SC (12/05/2023) Interface Provider DUMMY/OTHER/AR from Last 3 Months Care Teams Petroleum Sampler Relationship Specialty Start Date End Date Clinician, Not Found, [place] [address] PCP - General 04/21/14
--- OUTSIDE RECORDS SUMMARY | 2024-03-01 15:45 | XMS_ITS | Referral Summary ---
Author Organization [facility] Address [address] [place] [address] Care Team Providers Care Time Analysis Clerk Name Role Phone Elsewhere, Pcp Primary Care Provider Unavailabl e Source Comments Patient records contain information from all sites at [facility]. For routine questions regarding patient records, call [phone] during business hours, M-F 8:00 AM - 5:00 PM Central Time. Record requests for emergency care only can be directed to [phone] at any time.[facility] Allergies Active Allergy Reactions Criticality Noted Date [...] drink = 0.6 oz pur e alcohol) [facility] Utilities Answer Date Recorded In the past 12 months has e [facility], gas, oil, or water [employer]obby threatened to shut off services in your [...] your living situation today? I have a [facility] place to live 10/06/2023 Sex and Gender Information Value Date Recorded Sex Assigned at Female 07/28/2023 2:08 PM DIGITAL WATCH ASSEMBLER Gender Identity Female 07/28/2023 2:08 PM DIGITAL WATCH ASSEMBLER Sexual Orientation Straight 07/28/2023 2: 08 PM DIGITAL WATCH ASSEMBLER Last Filed Vital Signs Vital Sign Reading Time Taken Comments Blood Pressure 122/75 10/10/2023 1:28 PM DIGITAL WATCH ASSEMBLER Pulse 73 10/10/2023 1:28 PM DIGITAL WATCH ASSEMBLER Temperature 36.2 ??C (97.2 ??F) 08/04/2023 2:24 PM CS T Respiratory Rate 14 08/04/2023 2:24 PM DIGITAL WATCH ASSEMBLER Oxygen Saturation 98% 08/04/2023 2:24 PM DIGITAL WATCH ASSEMBLER Inhaled Oxygen Concentration - - Weight 92.4 kg (203 lb 13 oz) 10/10/2023 1:28 PM DIGITAL WATCH ASSEMBLER Height 161.8 cm (5' 3.7) 10/10/2023 1:28 PM DIGITAL WATCH ASSEMBLER Body Mass Index 35.31 10/10/2023 1:28 PM DIGITAL WATCH ASSEMBLER Plan of Treatment Not on file Medical Devices Implanted Type Area Aws Developer Device Identifier Shelf Expiration Date Model / Serial / Lot Ocular Lens Ocular Lens Eye Explanted Type Area Aws Developer Device Identifier Shelf Expiration Date Model / Serial / Lot Stnt Uret Inl 6fx26 - [id number] Implanted:Qty : 1 on 06/15/2023 by Kvng Guy M.D., M.P.H. at [facility] Explanted:Qty : 1 Ureteral Stent C.R.Bard [id number] 01/03/2028 [id number] / / [id number] Stnt Uret Inl [id number] - [id number] Implanted:Qty : 1 on 08/04/2023 by Kvng Guy M.D., M.P.H. at [facility] Explanted:Qty : 1 on 09/07/2023 by Sandra Stern M.D., M.S. Ureteral Stent Left: Ureter C.R.Bard [id number] 01/03/2028 [id number] / / [id number] Procedures Procedure Name Priority Date/Time Associated Diagnosis Comments RENAL FUNCTION PANEL, S Routine 10/10/2023 10:52 AM DIGITAL WATCH ASSEMBLER Nephrolithiasis from Last 3 Months or Most Recently Relevant to Health Maintenance Results * (ABNORMAL) Renal Function Panel (10/10/2023 10:52 AM DIGITAL WATCH ASSEMBLER) Potassium, S 3.5(L) 3.6 - 5.2 mmol/L 10/10/2023 12:00 PM DIGITAL WATCH ASSEMBLER DTL Sodium, S 140 135 - 145 mmol/L 10/10/2023 12:00 PM DIGITAL WATCH ASSEMBLER DTL Chloride, S 102 98 - 107 mmol/L 10/10/2023 12:00 PM DIGITAL WATCH ASSEMBLER DTL Bicarbonate, S 26 22 - 29 mmol/L 10/10/2023 12:00 PM DIGITAL WATCH ASSEMBLER DTL Anion Gap 12 7 - 15 10/10/2023 12:00 PM DIGITAL WATCH ASSEMBLER DTL BUN (Blood Urea Nitrogen), S 35(H) 6 - 21 mg/dL 10/10/2023 12:00 PM DIGITAL WATCH ASSEMBLER DTL Creatinine 1.20(H) 0.59 - 1.04 mg/dL 10/10/2023 12:00 PM DIGITAL WATCH ASSEMBLER DTL Estimated GFR (eGFR) 45(L) >=60 mL/min/BSA 10/10/2023 12:00 PM DIGITAL WATCH ASSEMBLER DTL Comment: Estimated GFR calculated using the 2020 CKD_EPI creatinine equation. Calcium, Total, S 10.1 8.8 - 10.2 mg/dL 10/10/2023 12:00 PM DIGITAL WATCH ASSEMBLER DTL Glucose, S 96 70 - 140 mg/dL 10/10/2023 12:00 PM DIGITAL WATCH ASSEMBLER DTL Albumin, S 4.1 3.5 - 5.0 g/dL 10/10/2023 12:00 PM DIGITAL WATCH ASSEMBLER DTL Phosphorus (Inorganic), S 3.0 2.5 - 4.5 mg/dL 10/10/2023 12:00 PM DIGITAL WATCH ASSEMBLER DTL Blood (Blood, Venous) 10/10/2023 10:52 AM DIGITAL WATCH ASSEMBLER 10/10/2023 11:31 AM DIGITAL WATCH ASSEMBLER Sandra Stern M.D., M.S. LAB BLOO D ADD-ON [facility] [address] [place] [address], [place] DTL [facility] [address] [place] [address] from Last 3 Months or Most Recently Relevant to Health Maintenance Care Teams Time Analysis Clerk Relationship Specialty Start Date End Date Elsewhere, Pcp PCP - General Internal Medicine 04/13/23
--- OUTSIDE RECORDS SUMMARY | 2024-03-01 15:45 | XMS_ITS | Clinical Summary ---
Author Organization [facility] Address [place], [place] [address] Care Team Providers Care Learning And Development Consultant Name Role Phone Pcp, No Primary Care Provider Unavailabl e Allergies Active Allergy Reactions Criticality Noted Date Comments Atorvastatin Intolerance-Can't Take 03/30/2017 Bacitracin Rash 03/30/2017 Latex Rash 03/30/2017 Neomycin Rash 03/30/2017 Polymyxin B Rash 03/30/2017 Potassium Nausea And Vomiting 03/30/2017 White Petrolatum Rash 03/30/2017 Medications Medication Sig Dispensed Refills Start Date End Date Status ATENOLOL 50 MG TAB Take one tablet by mouth every day 30 1 05/11/2007 Active VENTOLIN HFA 90 mcg/actuation inhaler 1 Puff every 4 hours if needed. 2 02/21/2017 Active ADVAIR DISKUS 100-50 mcg/dose diskus inhaler 1 Puff 2 times daily. 11 03/21/2017 Active triamterene-hydroch lorothiazide, 37.5-25 mg, (MAXZIDE-25) 37.5-25 mg tablet 1 tablet once daily. 1 02/23/2017 Active albuterol (PROVENTIL) 0.083 % neb solution Inhale 2.5 mg via a nebulizer every 4 hours if needed. Active ibuprofen (ADVIL; MOTRIN) 200 mg tablet Take 400 mg by mouth every 4 hours if needed for Pain. Active albuterol-ipratropi um (DUONEB) (2.5-0.5 mg) in 3 mL NEBULIZATION solution Inhale 1 Neb via a nebulizer every 4 hours if needed (shortness of breath). Active sennosides (SENNA) 8.6 mg tablet Take 8.6-34.4 mg by mouth once daily. Active multivitamins-train examiner als-lutein (CENTRUM SILVER) 0.4-300-250 mg-mcg-mcg tab Take 1 tablet by mouth once daily. Active Cholecalciferol, Vitamin D3, (VITAMIN D-3) 2,000 unit tablet Take 2,000 Units by mouth once daily. Active silver sulfADIAZINE (SILVADENE) 1 % cream Apply topically to affected area(s) once daily if needed for Other (Specify) (for cuts). Active bisacodyl (DULCOLAX) 5 mg tablet Take 5 mg by mouth once daily if needed for Constipation. Active acetaminophen (TYLENOL EXTRA STRGTH) 500 mg tablet Take 500-1,000 mg by mouth every 6 hours if needed. Max acetaminophen dose: 4000mg in 24 hrs. Active morphine CONTROLLED RELEASE (MS CONTIN) 30 mg CR tabletIndications:V ertebral osteomyelitis (HC) Take 1 tablet by mouth every 12 hours 30 tablet 04/04/2017 Active lidocaine 5% (LIDODERM) 5 % patchIndications:Ac [place] [facility] left-sided low back pain without sciatica Apply 1 patch to painful area of skin for up to 12 hours within a 24-hour period. 10 Patch 04/04/2017 Active WalkerIndications:V ertebral osteomyelitis (HC) Rolling Walker for home use. 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 Gram negative sepsis 03/31/2017 Acute left-sided low back pain without sciatica 03/30/2017 Vertebral osteomyelitis 03/30/2017 Overview: T10-11 associated with discitis by MRI Asthma 03/30/2017 Hypertension 03/30/2017 HLD (hyperlipidemia) 03/30/2017 Depression 03/30/2017 History of kidney stones 03/30/2017 Lower extremity edema 03/30/2017 Family History Medical History Relation Name Comments Coronary artery disease Father Coronary artery disease Mother Relation Name Status Comments Father Mother Social History Tobacco Use Types Packs/Day Years Used Date Smoking Tobacco: Never Smokeless Tobacco: Never Alcohol Use Standard Drinks/Week Comments No 0 (1 standard drink = 0.6 oz pur e alcohol) Sex and Gender Information Value Date Recorded Sex Assigned at Not on file Gender Identity Not on file Sexual Orientation Not on file Obstetrics History Last Filed Vital Signs Vital Sign Reading Time Taken Comments Blood Pressure 123/71 06/29/2017 10:49 AM CDT Pulse 64 06/29/2017 10:49 AM CDT Temperature 36.6 ??C (97.9 ??F) 04/04/2017 4 :14 PM CDT Respiratory Rate 16 04/04/2017 4:14 PM CDT Oxygen Saturation 95% 04/04/2017 4:1 4 PM CDT Inhaled Oxygen Concentration - - Weight 83.9 kg (185 lb) 06/29/2017 10:4 9 AM CDT Height 168.9 cm (5' 6.5) 04/03/2017 8: 11 AM CDT HP chart 04/21/16 Body Mass Index 29.41 04/03/2017 8:11 AM CDT Plan of Treatment Health Maintenance Due Date Last Done Comments Tdap 12/01/1950 Depression screening for age 12+ 1951 BMI (ht and wt on same day) for age 18+ 12/01/1957 Tetanus booster 1959 Zoster (shingles) series for age 50+ (1 of 2) 12/01/1989 DEXA/DXA scan for age 65+ 12/01/2004 Pneumococcal series for age 65+ (1 of 1 - PCV) 12/01/2004 COVID-19 vaccine series (2022-24 season) 2023 01/19/2023, 07/18/2022, 12/23/2021, Additional history exists Influenza for age 65+ 05/12/2024 Advance Directives * Full Code (Latest Code Status on File) Date Activated Date Inactivated Comments 03/30/2017 11:03 PM 04/04/2017 7:16 PM Question Answer Comments Code Status Discussion: Discussed Care Teams Learning And Development Consultant Relationship Specialty Start Date End Date Pcp, No . PCP - General 04/07/17
--- OUTSIDE RECORDS SUMMARY | 2024-03-01 15:45 | XMS_ITS ---
Author Organization [facility] Address [address] [place] [address] Care Team Providers Care Bead Supervisor Name Role Phone Unavailable Unavailable Unavailable Surgery Details Not on file Complications Check Surgery Details section. Procedure Estimated Blood Loss Check Surgery Details section. Procedure Findings Check Surgery Details section. Procedure Specimens Taken Check Surgery Details section.
--- OUTSIDE RECORDS SUMMARY | 2024-03-01 15:45 | XMS_ITS | Encounter Summary ---
[facility] Address [address] [place] [address] Care Team Providers Care Deskidding Machine Operator Name Role Phone Clinician, Not Found MD Primary Care Provider Un available Reason for Visit * Reason Comments Follow-up Asthma/Allergies Encounter Details Date Type Department Care Team (Late st Contact Info) Description 12/05/2023 11:00 AM CDT Office Visit [facility] [address] [place], [place] [id number] Mya Hurtado MD [address] [place] [address] Encounter for pulmonary function testing (Primary Dx); Moderate asthma, unspecified whether complicated, unspecified whether persistent (HRC); Allergic rhinitis, unspecified seasonality, unspecified trigger Social History Tobacco Use Types Packs/Day Years Used Date Smoking Tobacco: Never Smokeless Tobacco: Never Sex and Gender Information Value Date Recorded Sex Assigned at Not on file Gender Identity Not on file Sexual Orientation Not on file documented as of this encounter Last Filed Vital Signs Vital Sign Reading [...] Mass Index 35.65 12/05/2023 10:59 AM CDT documented in this encounter Patient Instructions * Patient Instructions* Mya Hurtado MD - 12/05/2023 11:00 AM CDT Your breathing tests are not quite as good as they had been but it has been 3+ years since your last test. Keep moving! It is good for your lungs and every other part of your body as well. I am increasing your dose of the Advair (fluticasone-salmeterol). The dose is still 2 puffs twice daily. I will give you Prednisone to use at your discretion. I am intentionally not giving refills. If youuse it, let me know so I can track your use. Call with questions or problems. [phone] (nurse line) documented in this encounter Progress Notes * Mya Hurtado MD - 12/05/2023 11:00 AM CDT Images from the original note were not included. Padmini is an 83 y.o. female with a history of asthma and allergic rhinitis (2006 positive to dust mite, Alternaria, cat). Only visit with me 05/2022 over the phone. Previously seen by Drs. Ponce and Alexandrea. Most recent PFT in 2019, normal. On immunotherapy in the , stopped because of reactions. ASTHMA: In the absence of sinus infections and being out in the wind, no issues. Walking, primary exercise. No waking with asthma except with acute infections. On Advair HFA 45 at a dose of 2 puffs twice a day (obtained from [facility]) and albuterol inhaler 2 puffs twice daily by routine. Used every 4 hours in the presence of cats. Nebulizer used for break through symptoms as needed or to prevent symptoms. Visiting her daughter who smokes and has pets. If she is there too long, she may use the albuterol on her way home. ALLERGIES: 2 episodes of sinusitis this year. Symptoms manifest with facial pressure (interfered with sleep), chest congestion. Unable to lay flat. Slept in the [place] for 2 weeks. After using the nebulizer, able to cough green-yellow drainage. Had gone several years without getting a sinusitis. Triggers: wind in the spring and fall, around cut grass, cold air. One last fall and another currently. Uses the nebulizer every 4 hours. Last fall, given Prednisone which helped. This episode has lasted 3 weeks which Padmini attributes to not having oral steroids. Tolerates short courses of oral steroids. No ongoing nasal issues. Able to smell. No snoring. No pets. Non-smoker, never. Primary care outside of [facility], Dr. Hernandez, [facility]. Daughter and son both with dogs. In the past year, episode of nephrolithiasis that was complicated by a fall. 5 kidney stones, one procedure with a drain placement, 11 hours, a second surgerytook 5 hours. PHYSICAL EXAM: BP (!) 147/92 (BP Location: Left Arm, BP Cuff Size: Large) Pulse 71 Ht 1.626 m (5' 4) Wt 94.2 kg (207 lb 11.2 oz) SpO2 96% BMI 35.65 kg/m?? Healthy appearing mature adult female. Eyes: Conjunctiva clear. PERRL. Ears: Canals patent. TMs normal. Nose: Healthy-appearing mucosa, normal coloration, moist membranes. No edema, purulence or polyps. Oropharynx: Normal. Teeth and gums in good repair. Neck: No palpable adenopathy. No thyromegaly. Lungs: Clear lung huerta, with good air movement. No wheezes. CV: RRR. Normal S1, S2. No murmurs. No pedal edema wearing support stockings. OBJECTIVE TESTS: PFT: Scooping of inspiratory flow volume loop. Value slightly decreased compared to previous. NIOX: 52 ppb, last test 17 ppb. IMPRESSION: 1. Asthma. Objective breathing tests not quite as good as previous. Recent exacerbation and time may be factors. Will attempt increasing dose of ICS in hope of avoiding future exacerbations. Discussed both short-term and long-term side effects of systemic steroid use. I did provide 1 prescription of prednisone for 5-7 days to use at her discretion. If used, I should be notified at which point I can track frequency. Importance of ongoing exercise both for lung and overall health reviewed. 2. Chronic rhinitis. Suspect allergy and possible nonallergic mechanisms contributing to symptoms. Previous trials of ongoing nonsedating antihistamines and nasal steroid sprays fail to provide enough benefit to warrant ongoing use. PLAN: 1. Increase Advair HFA 215-21 mcg 2 puffs b.i.d. 2. Albuterol MDI 2 puffs or 1 nebulized treatment q.4 hours p.r.n. 3. Prednisone 20 mg, 1 p.o. b.i.d. for 5-7 days to use at her discretion 4. Return to clinic 1 year or as needed Total time of visit including time spent with patient, chart review and coordination of care was 35minutes. documented in this encounter Plan of Treatment Not on file documented as of this encounter Procedures Procedure Name Priority Date/Time Associated Diagnosis Comments SPIROMETRY ALLERGY Routine 12/05/2023 10 :42 AM CDT Encounter for pulmonary function testing documented in this encounter Results * SPIROMETRY ALLERGY (12/05/2023 10:42 AM CDT) FVC-PRED 2.34 PN BREEZE FVC 1.86 PN BREEZE FVC-%PRED 79 PN BREEZE FEV1-PRED 1.73 PN BREEZE FEV1 1.42 PN BREEZE FEV1-%Pred 81 PN B[facility]ZE [id number] 73 PN BREEZE [id number] Pre 76 PN BREEZE [id number]-P RE 104 PN BREEZE FEFMAX-PRED 4.28 PN BREEZE FEFMAX-PRE 5.96 PN BREEZE FEFMAX-%PRED-DE E 139 PN BREEZE [id number] 1.16 PN BREEZE [id number] 1.08 PN BREEZE [id number]-%PRED-P RE 93 PN BREEZE 12/05/2023 10:4 2 AM CDT Mya Hurtado MD PN PFT ORDERABLES PN BREEZE documented in this encounter Visit Diagnoses Diagnosis Encounter for pulmonary function testing- Primary Other specified examination Moderate asthma, unspecified whether complicated, unspecified whether persistent (HRC) Allergic rhinitis, unspecified seasonality, unspecified trigger documented in this encounter Care Teams Deskidding Machine Operator Relationship Specialty Start Date End Date Clinician, Not Found, [place] [address] PCP - General 04/21/14 documented as of this encounter
--- OUTSIDE RECORDS SUMMARY | 2024-03-01 15:45 | XMS_ITS | Encounter Summary ---
Author Organization [facility] Address [address], [place] [address] Care Team Providers Care Plastic Extruding Machine Operator Name Role Phone Clinician, Not Found Primary Care Provider Un available Encounter Details Date Type Department Care Team (Latest Contact Info) Description 12/05/2023 Orders Only HIM DEPARTMENT Provider, Tai, [place] [address] Social History Tobacco Use Types Packs/Day Years Used Date Smoking Tobacco: Never Smokeless Tobacco: Never Sex and Gender Information Value Date Recorded Sex Assigned at Not on file Gender Identity Not on file Sexual Orientation Not on file documented as of this encounter Plan of Treatment Not on file documented as of this encounter Procedures Procedure Name Priority Date/Time Associated Diagnosis Comments PULMONARY TEST AK 12/05/2023 documented in this encounter Results * PULMONARY TEST AK (12/05/2023) Interface Provider DUMMY/OTHER/AR documented in this encounter Visit Diagnoses Not on filedocumented in this encounter Care Teams Plastic Extruding Machine Operator Relationship Specialty Start Date End Date Clinician, Not Found, [place] [address] PCP - General 04/21/14 documented as of this encounter
== END 2024-02-26 08:56 | disposition home or self-care (01) ==
LOC: NFLDREF 03-01 15:42
PROVIDERS: PCP Internal Medicine; Referring Provider Internal Medicine; Visit Provider Internal Medicine
DX: I10 Essential (primary) hypertension (principal); M10.9 Gout, unspecified
CPT/HCPCS: 80048; 84550

== ENCOUNTER 2024-03-26 08:22 | Outpatient (CLI) | payer MEDICARE, BC, SELFPAY ==
--- OUTSIDE RECORDS SUMMARY | 2024-03-26 08:32 | XMS_ITS | Continuity of Care Document ---
Author Organization [facility] Address [address] [place] [address] Phone Care Team Providers Care Visiting Teacher Name Role Phone Collins Griffiths MD Unavailable [...] Effective Dates (start - stop) Status Comments TYLENOL (unknown strength) Not Available - Active VITAMIN D3 (unknown strength) Not Available - Active SILVADENE (unknown strength) Not Available - Active PROVENTIL HFA (unknown strength) Not Available - Active SENNA (unknown strength) Not Available - Active OXYCODONE HCL (unknown strength) Not Available - Active MULTIVITAMINS (unknown strength) Not Available - Active DULCOLAX (unknown strength) Not Available - Active MAXZIDE-25 MG (unknown strength) Not Available - Active ATENOLOL (unknown strength) Not Available - Active ADVIL (unknown strength) Not Available - Active ADVAIR DISKUS (unknown strength) Not Available - Active Procedures Procedure Date X Ray Exam Entire Spine 1 Office/Outpatient Visit,New Low 2020 Office/Outpatient Visit,Est, Mod 2017 X Ray Exam Entire Spine 1 VW Office/Outpatient Visit,Est, Mod 2017 X Ray Exam Entire Spine 1 VW Office/Outpatient Visit,Est, Mod 2016 X Ray Exam Entire Spine 1 VW Office/Outpatient Visit,Est, Mod 2016 X Ray Exam Entire Spine 1 VW Office/Outpatient Visit,New, Mod 2016 X Ray Exam Entire Spine 2/3 VW 17 Followup Hospital Care, [facility] 2016 Advance Directives Directive Yes / No Effective Date File Name No Information Encounters Encounter Description Practice Location Reason(s) For Visit Diagnoses Date Provider Providers Copied on Encounter [facility], [address], [place], [place], [id number], [place] tel:[phone] [facility] No Information 2 Mehbod Amir. [facility] [place], [address], [place], [place], [id number], [place]. tel:[phone] Office/Outpat ient Visit,New, Low [facility], [address], [place], [place], [id number], [place] tel:[phone] [facility] Kyphosis 1 Mehbod Amir. [facility] [place], [address], [place], [place], [address], [place]. tel:[phone] Referring Provider: Collins Griffiths, [facility] [address], [place], [address] . tel:[phone] [facility], [address], [place], [place], [address], [place] tel:[phone] [facility] Kyphosis 1 Mehbod Amir. [facility] [place], [address], [place], [place], [address], [place]. tel:[phone] Office/Outpat ient Visit,Est, Mod [facility], [address], [place], [place], [address], [place] tel:[phone] [facility] Osteomyelitis 8-201 8 Mehbcleo Amir. [facility] [place], [address], [place], [place], [address], [place]. tel:[phone] Referring Provider: Collins Griffiths, [facility] [address], [place], [address] . tel:[phone] Office/Outpat ient Visit,Est, Mod [facility], [address], [place], [place], [address], [place] tel:[phone] [facility] Osteomyelitis Sep-0 8-201 8 Mehbod Amir. [facility], [address], [place], [place], [address], [place]. tel:[phone] Referring Provider: Collins Griffiths, [facility] [address], [place], [address] . tel:[phone] Office/Outpat ient Visit,Est, Mod [facility], [address], [place], [place], [address], [place] tel:[phone] [facility] Osteomyelitis 0 6-201 7 Mehbod Amir. [facility], [address], [place], [place], [address], [place]. tel:[phone] Referring Provider: Collins Griffiths, [facility] [address], [place], [address] . tel:[phone] Office/Outpat ient Visit,Est, Mod [facility], [address], [place], [address], [place] tel:[phone] [facility] Osteomyelitis 4-201 7 Mehbod Amir. [facility], [address], [place], [place], [address], [place]. tel:[phone] Referring Provider: Collins Griffiths, [facility] [place] [address] [place] [address] [address], [place], [address] . tel:[phone] Office/Outpat ient Visit,New, Mod [facility], [address], [place], [place], [address], [place] tel:[phone] [facility] kevincleo Guadalupe. [facility], [address], [place], [place], [address], [place]. tel:[phone] Referring Provider: Referring Self, [address] [facility] [address], [place], [address]. tel:[phone] Followup Hospital Care, Moderate [facility], [address], [place], [place], [address], [place] tel:[phone] [facility] No Information Arnoldo Otis. [facility] [place], [address], [place], [place], [address], [place]. tel:[phone] Referring Provider: Referring Self, [address] [address], [place], [address]. tel:[phone] Family History Family Member Type Diagnosis Age At Onset No Information Payers Payer name Insurance type Covered democrat ID Rafita christ[place] [id number] Medicare [facility] [id number] Social History Type Description Quantity Date [...] Instructions Date Instruction Additional Infor mation Weight Management Education Rela jonathan to Overweight [...] Practitioner timeframe: 1 Month. Related to Overweight Assessments Type Assessment Date No Information Patient Care Teams Name Effective Dates (start - stop) Status Members No Information
--- OUTSIDE RECORDS SUMMARY | 2024-03-26 08:32 | XMS_ITS | Clinical Summary ---
Author Organization [facility] Address [address] [place] [address] Care Team Providers Care Plaster Model And Mold Maker Name Role Phone Elsewhere, Pcp Primary Care Provider Unavailabl e Source Comments Patient records contain information from all sites at [facility]. For routine questions regarding patient records, call [phone] during business hours, M-F 8:00 AM - 5:00 PM Central Time. Record requests for emergency care only can be directed to [phone] at any time.[facility] Allergies Active Allergy Reactions Criticality Noted Date [...] drink = 0.6 oz pur e alcohol) [facility] Utilities Answer Date Recorded In the past 12 months has e [employer], gas, oil, or water [employer] threatened to shut off services in your [...] your living situation today? I have a [facility] place to live 10/06/2023 Sex and Gender Information Value Date Recorded Sex Assigned at Female 07/28/2023 2:08 PM EXECUTIVE ADVISOR Gender Identity Female 07/28/2023 2:08 PM EXECUTIVE ADVISOR Sexual Orientation Straight 07/28/2023 2: 08 PM EXECUTIVE ADVISOR Last Filed Vital Signs Vital Sign Reading Time Taken Comments Blood Pressure 122/75 10/10/2023 1:28 PM EXECUTIVE ADVISOR Pulse 73 10/10/2023 1:28 PM EXECUTIVE ADVISOR Temperature 36.2 ??C (97.2 ??F) 08/04/2023 2:24 PM CS T Respiratory Rate 14 08/04/2023 2:24 PM EXECUTIVE ADVISOR Oxygen Saturation 98% 08/04/2023 2:24 PM EXECUTIVE ADVISOR Inhaled Oxygen Concentration - - Weight 92.4 kg (203 lb 13 oz) 10/10/2023 1:28 PM EXECUTIVE ADVISOR Height 161.8 cm (5' 3.7) 10/10/2023 1:28 PM EXECUTIVE ADVISOR Body Mass Index 35.31 10/10/2023 1:28 PM EXECUTIVE ADVISOR Plan of Treatment Health Maintenance Due Date Last Done Comments DTaP,Tdap,and Td Vaccines (2 - Td or Tdap) 03/27/2023 03/27/2013, 01/01/1997 COVID-19 Vaccine (2022-2 4 season) 2023 01/19/2023, 07/18/2022, 12/23/2021, Additional history exists Depression Screening (Annual PHQ-2) 09/11/2023 Fall Risk Screen (Annual) 09/11/2023 Influenza Vaccine (#1) 2024 3, 06/23/2022, 06/09/2021, Additional history exists Creatinine Level (Kidney Fun ction Test) 10/10/2024 10/10/2023, 06/16/2023, 06/14/2023, Additional history exists Office Visit for Blood Press ure Check / Re-check 10/10/2024 10/10/2023 Potassium Level 10/10/2024 10/10/2023, 02/2023, 06/14/2023, Additional history exists Sodium Level 10/10/2024 10/10/2023, 02/2023, 06/14/2023, Additional history exists Pneumococcal vaccine (65+ years) Completed 02/01/2016, 11/24/2014, 07/17/2003 Zoster Vaccines Completed 07/11/2019, 04/11, 06/25/2012 Medical Devices Implanted Type Area Software Quality Specialist Device Identifier Shelf Expiration Date Model / Serial / Lot Ocular Lens Ocular Lens Eye Explanted Type Area Software Quality Specialist Device Identifier Shelf Expiration Date Model / Serial / Lot Stnt Uret Inl 6fx26 - [id number] Implanted:Qty : 1 on 06/15/2023 by Kvng Guy M.D., M.P.H. at [facility] Explanted:Qty : 1 Ureteral Stent [employer]Bard [id number] 01/03/2028 [id number] / / [id number] Stnt Uret Inl 6fx26 - [id number] Implanted:Qty : 1 on 08/04/2023 by Kvng Guy M.D., M.P.H. at [facility] Explanted:Qty : 1 on 09/07/2023 by Sandra Stern M.D., M.S. Ureteral Stent Left: Ureter C.[employer].Bard [id number] 01/03/2028 [id number] / / [id number] Procedures Procedure Name Priority Date/Time Associated Diagnosis Comments RENAL FUNCTION PANEL, S Routine 10/10/2023 10:52 AM EXECUTIVE ADVISOR Nephrolithiasis from Last 3 Months or Most Recently Relevant to Health Maintenance Results * (ABNORMAL) Renal Function Panel (10/10/2023 10:52 AM EXECUTIVE ADVISOR) Potassium, S 3.5(L) 3.6 - 5.2 mmol/L 10/10/2023 12:00 PM EXECUTIVE ADVISOR DTL Sodium, S 140 135 - 145 mmol/L 10/10/2023 12:00 PM EXECUTIVE ADVISOR DTL Chloride, S 102 98 - 107 mmol/L 10/10/2023 12:00 PM EXECUTIVE ADVISOR DTL Bicarbonate, S 26 22 - 29 mmol/L 10/10/2023 12:00 PM EXECUTIVE ADVISOR DTL Anion Gap 12 7 - 15 10/10/2023 12:00 PM EXECUTIVE ADVISOR DTL BUN (Blood Urea Nitrogen), S 35(H) 6 - 21 mg/dL 10/10/2023 12:00 PM EXECUTIVE ADVISOR DTL Creatinine 1.20(H) 0.59 - 1.04 mg/dL 10/10/2023 12:00 PM EXECUTIVE ADVISOR DTL Estimated GFR (eGFR) 45(L) >=60 mL/min/BSA 10/10/2023 12:00 PM EXECUTIVE ADVISOR DTL Comment: Estimated GFR calculated using the 2020 CKD_EPI creatinine equation. Calcium, Total, S 10.1 8.8 - 10.2 mg/dL 10/10/2023 12:00 PM EXECUTIVE ADVISOR DTL Glucose, S 96 70 - 140 mg/dL 10/10/2023 12:00 PM EXECUTIVE ADVISOR DTL Albumin, S 4.1 3.5 - 5.0 g/dL 10/10/2023 12:00 PM EXECUTIVE ADVISOR DTL Phosphorus (Inorganic), S 3.0 2.5 - 4.5 mg/dL 10/10/2023 12:00 PM EXECUTIVE ADVISOR DTL Blood (Blood, Venous) 10/10/2023 10:52 AM EXECUTIVE ADVISOR 10/10/2023 11:31 AM EXECUTIVE ADVISOR Sandra Stern M.D., M.S. LAB BLOO D ADD-ON [facility] [address] [place] [address], [place] DTL [facility] [address] [place] [address] from Last 3 Months or Most Recently Relevant to Health Maintenance Care Teams Plaster Model And Mold Maker Relationship Specialty Start Date End Date Elsewhere, Pcp PCP - General Internal Medicine 04/13/23
--- OUTSIDE RECORDS SUMMARY | 2024-03-26 08:32 | XMS_ITS | Referral Summary ---
Author Organization [facility] Address [address] [place] [address] Care Team Providers Care Site Surveyor Name Role Phone Elsewhere, Pcp Primary Care Provider Unavailabl e Source Comments Patient records contain information from all sites at [facility]. For routine questions regarding patient records, call [phone] during business hours, M-F 8:00 AM - 5:00 PM Central Time. Record requests for emergency care only can be directed to [phone] at any time.[facility] Allergies Active Allergy Reactions Criticality Noted [...] drink = 0.6 oz pur e alcohol) [facility] Utilities Answer Date Recorded In the past 12 months has e [employer], gas, oil, or water [employer] threatened to shut off services in your [...] living situation today? I have a [facility] place to live 10/06/2023 Sex and Gender Information Value Date Recorded Sex Assigned at Female 07/28/2023 2:08 PM APIARIST Gender Identity Female 07/28/2023 2:08 PM APIARIST Sexual Orientation Straight 07/28/2023 2: 08 PM APIARIST Last Filed Vital Signs Vital Sign Reading Time Taken Comments Blood Pressure 122/75 10/10/2023 1:28 PM APIARIST Pulse 73 10/10/2023 1:28 PM APIARIST Temperature 36.2 ??C (97.2 ??F) 08/04/2023 2:24 PM CS T Respiratory Rate 14 08/04/2023 2:24 PM APIARIST Oxygen Saturation 98% 08/04/2023 2:24 PM APIARIST Inhaled Oxygen Concentration - - Weight 92.4 kg (203 lb 13 oz) 10/10/2023 1:28 PM APIARIST Height 161.8 cm (5' 3.7) 10/10/2023 1:28 PM APIARIST Body Mass Index 35.31 10/10/2023 1:28 PM APIARIST Plan of Treatment Not on file Medical Devices Implanted Type Area Handle Turner Device Identifier Shelf Expiration Date Model / Serial / Lot Ocular Lens Ocular Lens Eye Explanted Type Area Handle Turner Device Identifier Shelf Expiration Date Model / Serial / Lot Stnt Uret Inl 6fx26 - [id number] Implanted:Qty : 1 on 06/15/2023 by Kvng Guy M.D., M.P.H. at [facility] Explanted:Qty : 1 Ureteral Stent C.[employer].Bard [id number] 01/03/2028 [id number] / / [id number] Stnt Uret Inl 6fx26 - [id number] Implanted:Qty : 1 on 08/04/2023 by Kvng Guy M.D., M.P.H. at [facility] Explanted:Qty : 1 on 09/07/2023 by Sandra Stern M.D., M.S. Ureteral Stent Left: Ureter C.R.Bard [id number] 01/03/2028 [id number] / / [id number] Procedures Procedure Name Priority Date/Time Associated Diagnosis Comments RENAL FUNCTION PANEL, S Routine 10/10/2023 10:52 AM APIARIST Nephrolithiasis from Last 3 Months or Most Recently Relevant to Health Maintenance Results * (ABNORMAL) Renal Function Panel (10/10/2023 10:52 AM APIARIST) Potassium, S 3.5(L) 3.6 - 5.2 mmol/L 10/10/2023 12:00 PM APIARIST DTL Sodium, S 140 135 - 145 mmol/L 10/10/2023 12:00 PM APIARIST DTL Chloride, S 102 98 - 107 mmol/L 10/10/2023 12:00 PM APIARIST DTL Bicarbonate, S 26 22 - 29 mmol/L 10/10/2023 12:00 PM APIARIST DTL Anion Gap 12 7 - 15 10/10/2023 12:00 PM APIARIST DTL BUN (Blood Urea Nitrogen), S 35(H) 6 - 21 mg/dL 10/10/2023 12:00 PM APIARIST DTL Creatinine 1.20(H) 0.59 - 1.04 mg/dL 10/10/2023 12:00 PM APIARIST DTL Estimated GFR (eGFR) 45(L) >=60 mL/min/BSA 10/10/2023 12:00 PM APIARIST DTL Comment: Estimated GFR calculated using the 2020 CKD_EPI creatinine equation. Calcium, Total, S 10.1 8.8 - 10.2 mg/dL 10/10/2023 12:00 PM APIARIST DTL Glucose, S 96 70 - 140 mg/dL 10/10/2023 12:00 PM APIARIST DTL Albumin, S 4.1 3.5 - 5.0 g/dL 10/10/2023 12:00 PM APIARIST DTL Phosphorus (Inorganic), S 3.0 2.5 - 4.5 mg/dL 10/10/2023 12:00 PM APIARIST DTL Blood (Blood, Venous) 10/10/2023 10:52 AM APIARIST 10/10/2023 11:31 AM APIARIST Sandra Stern M.D., M.S. LAB BLOO D ADD-ON [facility] [address] [place] [address], [place] DTL [facility] [address] [place] [address] from Last 3 Months or Most Recently Relevant to Health Maintenance Care Teams Site Surveyor Relationship Specialty Start Date End Date Elsewhere, Pcp PCP - General Internal Medicine 04/13/23
--- OUTSIDE RECORDS SUMMARY | 2024-03-26 08:32 | XMS_ITS ---
Author Organization [facility] Address [address] [place] [address] Care Team Providers Care Cardiac Cath Lab Manager Name Role Phone Unavailable Unavailable Unavailable Surgery Details Not on file Complications Check Surgery Details section. Procedure Estimated Blood Loss Check Surgery Details section. Procedure Findings Check Surgery Details section. Procedure Specimens Taken Check Surgery Details section.
--- OUTSIDE RECORDS SUMMARY | 2024-03-26 08:33 | XMS_ITS | Clinical Summary ---
Author Organization [facility] Address [address], [place] [address] Care Team Providers Care Portal Developer Name Role Phone Clinician, Not Found MD [...] for each transition of care or referral. [facility] Allerg[facility] Active Allergy Reactions Criticality Noted Date [...] Allergic NOS Asthma 02/15/2003 Overview: Asthma NOS Immunizations Name Administration Dates Next Due Devoraha Monovalent 12+ 11/27/2020,10/30/2020 Social History Tobacco Use [...] 01/19/2023, 07/18/2022, 12/23/2021, Additional history exists Influenza (#1) 2024 05/22/2023, 06/11, 06/09/2021, Additional history exists Pneumococcal 65+ Yrs Completed 02/01/2016, 11/24/2014, 07/17/2003 Zoster/Shingles Completed 07/11/2019, 04/11, 06/25/2012 HepA Aged Out No longer eligi ble [...] on patient's age to complete this topic Care Teams Portal Developer Relationship Specialty Start Date End Date Clinician, Not Found, [place] [address] PCP - General 04/21/14
--- OUTSIDE RECORDS SUMMARY | 2024-03-26 08:33 | XMS_ITS | Clinical Summary ---
Author Organization [email or web address] Address [place], [place] [address] Care Team Providers Care Operating Systems Programmer Name Role Phone Pcp, No Primary Care [...] 8.6-34.4 mg by mouth once daily. Active multivitamins-certified fraud examiner als-lutein (CENTRUM SILVER) 0.4-300-250 mg-mcg-mcg tab [...] Active lidocaine 5% (LIDODERM) 5 % patchIndications:[place] left-sided low back pain without sciatica Apply [...] Comments Code Status Discussion: Discussed Care Teams Operating Systems Programmer Relationship Specialty Start Date End Date Pcp, No . PCP - General 04/07/17
--- NOTE | 2024-03-26 09:09 | P.ANES_ITS ---
Anesthesia Charges Start Date/Time Anesthesia Start Date: 03/26/24 Anesthesia Start Time: 09:19 Stop Date/Time Anesthesia Stop Date: 03/26/24 Anesthesia Stop Time: 10:04 Summary Extremes of Age - Over 70 or under 1: INSURANCE AGENCY SALES MANAGER
--- NOTE | 2024-03-26 12:32 | W.ANESCHARGE ---
Anesthesia Charges Start Date/Time Anesthesia Start Date: 03/26/24 Anesthesia Start Time: 09:19 Stop Date/Time Anesthesia Stop Date: 03/26/24 Anesthesia Stop Time: 10:04 Summary Extremes of Age - Over 70 or under 1: MDA
== END 2024-03-26 08:23 | disposition home or self-care (01) ==
LOC: OP CLINIC 08:24
PROVIDERS: PCP Internal Medicine; Visit Provider Surgery
DX: Z12.11 Encounter for screening for malignant neoplasm of colon (principal); K63.5 Polyp of colon; K57.30 Diverticulosis of large intestine without perforation or abscess without bleeding; K64.4 Residual hemorrhoidal skin tags; Z86.010 Personal history of colon polyps; Z98.0 Intestinal bypass and anastomosis status
CPT/HCPCS: 00811; 45385; 88305; 99100; J2704

== ENCOUNTER 2025-03-10 13:18 | Outpatient (CLI) | payer MEDICARE, BC, SELFPAY | END 2025-03-10 13:19 | disposition home or self-care (01) | PROVIDERS: PCP Internal Medicine; Visit Provider Internal Medicine | DX: I10 Essential (primary) hypertension (principal); E87.6 Hypokalemia; M10.9 Gout, unspecified | CPT/HCPCS: 80048; 84550 ==